=== PATIENT | male | born 1955 | race Hispanic/Latino ===

== ENCOUNTER 2017-03-28 02:56 | Emergency (ER) | payer MEDICAID, OTHER ==
[2017-03-28] MEDS ORDERED: ONDANSETRON HCL 4 MG/2 ML VIAL ONE ×2 (03:17→05:40)
[2017-03-28] MEDS ORDERED: KETOROLAC TROMETHAMINE 30MG/ML ONE (03:18)
[2017-03-28 03:26] LABS: BASOPHILS % (AUTO) 1.1 % (0.0-5.0); HEMATOCRIT 39.3 % (42-54); LYMPHOCYTES % (AUTO) 30.8 % (21.0-51.0); MEAN CORPUSCULAR HGB CONC 33.8 g/dL (32.0-36.0); MONOCYTES % (AUTO) 8.4 % (3.0-13.0); NEUTROPHILS % (AUTO) 58.7 % (40.0-77.0); PLATELET COUNT (AUTO) 338 K/uL (130-400); RED BLOOD CELL COUNT(AUTO) 4.42 MIL/uL (4.50-6.20); WHITE BLOOD COUNT (AUTO) 14.7 K/uL (4.8-10.8)
[2017-03-28 03:27] LABS: BILIRUBIN,URINE Negative (NEGATIVE); COLOR,URINE Orange (YELLOW); GLUCOSE, URINE (UA) Negative (NEGATIVE); KETONES,URINE Negative (NEGATIVE); LEUKOCYTE ESTERASE ,URINE Trace (NEGATIVE); NITRATE,URINE Negative (NEGATIVE); OCCULT BLOOD,URINE Large (NEGATIVE); PROTEIN,URINE 300 (NEGATIVE)
[2017-03-28 03:29] LABS: APPEARANCE,URINE CLOUDY (CLEAR)
[2017-03-28 03:35] LABS: CREATININE 0.9 mg/dL (0.5-1.5); POTASSIUM 3.1 mmol/L (3.5-5.1)
[2017-03-28 03:39] LABS: ALBUMIN 3.8 g/dL (3.5-5.0); BILIRUBIN,TOTAL 0.3 mg/dL (0.2-1.0); TOTAL PROTEIN, SERUM 7.4 g/dL (6.0-8.3)
[2017-03-28 03:43] LABS: RBC,URINE 51-100 /HPF (0-1)
[2017-03-28 03:44] LABS: BACTERIA,URINE Rare /HPF (None Seen); MUCUS,URINE Rare LPF (None Seen); SQUAMOUS EPITHELIAL CELL,UR Rare /LPF (0-2); YEAST,URINE BUDDING Rare /HPF (None Seen)
[2017-03-28] MEDS ORDERED: MORPHINE SULFATE 4 MG/1ML SYG ONE (04:41)
[2017-03-28] MEDS ORDERED: HYDROMORPHONE HCL 2 MG/ML VIAL ONE (05:41)
[2017-03-28] MEDS ORDERED: LIDOCAINE HCL 2% 20ML ONE (06:31)
[2017-03-28] MEDS ORDERED: SODIUM CHLORIDE 0.9% 250 ML IV ONE (06:33)
== END 2017-03-28 07:52 | disposition home or self-care (01) ==
LOC: EDH 02:56
DX: N20.1 Calculus of ureter (principal); N23 Unspecified renal colic; I10 Essential (primary) hypertension; Z87.442 Personal history of urinary calculi
CPT/HCPCS: 36415; 74176; 80053; 81001; 85025; 96374; 96375; 99285; J1170; J1885; J2270; J2405 ×2; J3490; J7030

== ENCOUNTER 2017-03-29 13:16 | Inpatient (IN) | payer OTHER ==
[~2017-03-29] VITALS: Ht 172.7 cm; Wt 97.3 kg
[2017-03-29] MEDS ORDERED: MORPHINE SULFATE 4 MG/1ML SYG ONE (13:45)
[2017-03-29] MEDS ORDERED: ONDANSETRON HCL 4 MG/2 ML VIAL ONE (13:45)
[2017-03-29 13:58] LABS: BASOPHILS % (AUTO) 0.4 % (0.0-5.0); EOSINOPHILS % (AUTO) 0.2 % (0.0-8.0); LYMPHOCYTES % (AUTO) 11.4 % (21.0-51.0); MEAN CORPUSCULAR HEMOGLOBIN 30.5 pg (27.0-33.0); MEAN CORPUSCULAR HGB CONC 34.4 g/dL (32.0-36.0); MEAN CORPUSCULAR VOLUME 88.7 fL (79-99); MONOCYTES % (AUTO) 8.1 % (3.0-13.0); NEUTROPHILS % (AUTO) 79.9 % (40.0-77.0); PLATELET COUNT (AUTO) 271 K/uL (130-400); RED BLOOD CELL COUNT(AUTO) 4.05 MIL/uL (4.50-6.20); RED CELL DISTRIBUTION WIDTH 13.8 % (11.0-15.5); WHITE BLOOD COUNT (AUTO) 16.4 K/uL (4.8-10.8)
[2017-03-29] MEDS ORDERED: ORPHENADRINE CITRATE 30 MG/ML ML ONE (14:06)
[2017-03-29] MEDS ORDERED: HYDROMORPHONE HCL 2 MG/ML VIAL ONE (14:07)
[2017-03-29 14:22] LABS: CREATININE 1.1 mg/dL (0.5-1.5); POTASSIUM 3.5 mmol/L (3.5-5.1)
[2017-03-29] MEDS ORDERED: HYDROMORPHONE HCL 0.5 MG/0.5 ML ML ONE ×2 (15:07→15:14)
[2017-03-29] MEDS: SODIUM CHLORIDE 0.9% 1000ML 1,000 ML IV SCH ×2 (15:21→20:56)
[2017-03-29] MEDS ORDERED: HYDRALAZINE HCL 20 MG/ML VIAL IV PRN (15:30)
[2017-03-29] MEDS ORDERED: CEFTRIAXONE 1GM/D5W 50ML 50 ML IV SCH (15:30)
[2017-03-29] MEDS ORDERED: GUAIFENESIN-DM 200/20 MG 10 ML PO PRN (15:30)
[2017-03-29] MEDS ORDERED: ONDANSETRON HCL 4 MG/2 ML VIAL IV PRN (15:30)
[2017-03-29] MEDS ORDERED: LACTULOSE 20 GM/30 ML UDCUP PO PRN (15:30)
[2017-03-29] MEDS ORDERED: ZOLPIDEM TARTRATE 5 MG TAB PO PRN (15:30)
[2017-03-29] MEDS ORDERED: DiphenhydrAMINE HCL 50 MG/ML VIAL IV PRN (15:30)
[2017-03-29] MEDS ORDERED: TAMSULOSIN HCL 0.4 MG CAP.ER.24H ONE (15:42)
[2017-03-29] MEDS ORDERED: SODIUM CHLORIDE 0.9% 1000ML 1,000 ML IV ONE (15:42)
[2017-03-29] MEDS: CEFTRIAXONE SODIUM 1 GM IVP SCH (16:15)
[2017-03-29 16:49] VITALS: BP 153/99
[2017-03-29] MEDS: MORPHINE SULFATE 4 MG/1ML SYG IV PRN ×2 (18:05→22:13)
[2017-03-29 19:15] VITALS: BP 143/114
[2017-03-29] MEDS: FAMOTIDINE 20MG TAB 20 MG TAB PO SCH (20:54)
[2017-03-29] MEDS: ACETAMINOPHEN-CODEINE 300/30MG TAB PO PRN (20:59)
[2017-03-30] VITALS (7 sets, daily range): BP systolic 108–146; BP diastolic 62–90
[2017-03-30] MEDS: MORPHINE SULFATE 4 MG/1ML SYG IV PRN ×3 (02:49→20:21)
[2017-03-30] MEDS ORDERED: HYDROMORPHONE HCL 2 MG/ML VIAL IVP ONE (05:45)
[2017-03-30] MEDS ORDERED: HYDROMORPHONE 1 MG/1 ML AMP ONE (05:50)
[2017-03-30] MEDS: SODIUM CHLORIDE 0.9% 1000ML 1,000 ML IV SCH ×2 (05:58→16:59)
[2017-03-30] MEDS: FAMOTIDINE 20MG TAB 20 MG TAB PO SCH ×2 (09:30→20:21)
[2017-03-30] MEDS: ENOXAPARIN SODIUM 40 MG/0.4 ML SYRINGE SQ SCH (09:34)
[2017-03-30] MEDS: TAMSULOSIN HCL 0.4 MG CAP.ER.24H PO SCH (09:34)
[2017-03-30] MEDS: ACETAMINOPHEN-CODEINE 300/30MG TAB PO PRN (14:53)
[2017-03-30] MEDS ORDERED: NAPR-1192 PO (15:26)
[2017-03-30] MEDS ORDERED: DEXT1DRO OP (15:26)
[2017-03-30] MEDS ORDERED: TAMS0.4C32 PO (15:26)
[2017-03-30] MEDS ORDERED: ESOM20CA39 PO (15:26)
[2017-03-30] MEDS ORDERED: SILD100T71 PO (15:26)
[2017-03-30] MEDS ORDERED: SENN-175 PO (15:26)
[2017-03-30] MEDS ORDERED: BUSP10TA3 PO (15:26)
[2017-03-30] MEDS ORDERED: LORA10TA7 PO (15:26)
[2017-03-30] MEDS ORDERED: GEMF600T3 PO (15:26)
[2017-03-30] MEDS ORDERED: FLUT16H NS (15:26)
[2017-03-30] MEDS ORDERED: GABA-533 PO (15:26)
[2017-03-30] MEDS ORDERED: CYCL10TA7 PO (15:26)
[2017-03-30] MEDS ORDERED: CARB15DR OU (15:26)
[2017-03-30] MEDS ORDERED: METF-526 PO (15:26)
[2017-03-30] MEDS ORDERED: HYDR-4060 PO (15:26)
[2017-03-30] MEDS ORDERED: FINA5TAB41 PO (15:26)
[2017-03-30] MEDS ORDERED: MIRT15TA6 PO (15:26)
[2017-03-30] MEDS ORDERED: BISA5TAB12 PO (15:26)
[2017-03-30] MEDS ORDERED: TRAZ150T79 PO (15:26)
[2017-03-30] MEDS: CEFTRIAXONE SODIUM 1 GM IVP SCH (17:02)
[2017-03-30] MEDS ORDERED: DEXTROSE 50%-WATER 50 ML DISP.SYRIN IV PRN (18:15)
[2017-03-30] MEDS ORDERED: GLUCAGON 1MG KIT 1 MG ML IM PRN (18:15)
[2017-03-30] MEDS ORDERED: PHARMACY COMMUNICATION MISC SCH (18:30)
[2017-03-30] MEDS ORDERED: PEG 3350/NA SULF,BICARB,CL/KCL 4000 ML SOLN PO ONE (19:00)
[2017-03-30] MEDS ORDERED: ONDANSETRON HCL 4 MG/2 ML VIAL IVP PRN (19:45)
[2017-03-30] MEDS ORDERED: NALOXONE HCL 0.4 MG/1 ML ML IVP PRN (19:45)
[2017-03-30] MEDS ORDERED: MORPHINE-NS 50 MG/50 ML 50 ML IV PRN (19:45)
[2017-03-30] MEDS: INSULIN HUMULIN R 100 UNIT/ML 3ML SQ SCH ×2 (20:23)
[2017-03-30 20:41] LABS: APPEARANCE,URINE Clear (CLEAR); BILIRUBIN,URINE Negative (NEGATIVE); COLOR,URINE Yellow (YELLOW); GLUCOSE, URINE (UA) Negative (NEGATIVE); KETONES,URINE Negative (NEGATIVE); LEUKOCYTE ESTERASE ,URINE Negative (NEGATIVE); NITRATE,URINE Negative (NEGATIVE); OCCULT BLOOD,URINE Small (NEGATIVE); PROTEIN,URINE Negative (NEGATIVE); UROBILINOGEN,URINE 0.2 mg/dL (0.2-1.0)
[2017-03-30 20:59] LABS: BACTERIA,URINE Rare /HPF (None Seen); RBC,URINE 0-1 /HPF (0-1); SQUAMOUS EPITHELIAL CELL,UR Rare /LPF (0-2)
[2017-03-31 04:00] VITALS: BP 139/79
[2017-03-31 04:37] LABS: HEMATOCRIT 30.5 % (42-54); MEAN CORPUSCULAR HEMOGLOBIN 30.5 pg (27.0-33.0); MEAN CORPUSCULAR HGB CONC 34.2 g/dL (32.0-36.0); MEAN CORPUSCULAR VOLUME 88.9 fL (79-99); PLATELET COUNT (AUTO) 240 K/uL (130-400); RED BLOOD CELL COUNT(AUTO) 3.42 MIL/uL (4.50-6.20); RED CELL DISTRIBUTION WIDTH 14.1 % (11.0-15.5); WHITE BLOOD COUNT (AUTO) 10.2 K/uL (4.8-10.8)
[2017-03-31 04:50] LABS: CREATININE 0.7 mg/dL (0.5-1.5); POTASSIUM 3.2 mmol/L (3.5-5.1)
[2017-03-31] MEDS: SODIUM CHLORIDE 0.9% 1000ML 1,000 ML IV SCH ×2 (05:02→15:57)
[2017-03-31] MEDS: INSULIN HUMULIN R 100 UNIT/ML 3ML SQ SCH ×8 (06:11→20:48)
[2017-03-31] MEDS ORDERED: POTASSIUM CHLORIDE 20MEQ/100ML 100 ML IV PRN (07:45)
[2017-03-31] MEDS ORDERED: POTASSIUM CHLORIDE 10% ELIXIR 20 MEQ/15 ML UDCUP PO PRN (07:45)
[2017-03-31] MEDS ORDERED: POTASSIUM CHLORIDE 20 MEQ ERTAB PO PRN (07:45)
[2017-03-31] MEDS ORDERED: LIDOCAINE HCL-MPF 1% 2ML VIAL IVP PRN (07:45)
[2017-03-31 09:32] VITALS: BP 153/87
[2017-03-31] MEDS ORDERED: IOPAMIDOL-370 100 ML VIAL IV ONE (10:19)
[2017-03-31 12:00] VITALS: BP 151/93
[2017-03-31] MEDS: FAMOTIDINE 20MG TAB 20 MG TAB PO SCH ×2 (14:07→20:46)
[2017-03-31] MEDS: TAMSULOSIN HCL 0.4 MG CAP.ER.24H PO SCH (14:08)
[2017-03-31] MEDS: ENOXAPARIN SODIUM 40 MG/0.4 ML SYRINGE SQ SCH (14:08)
[2017-03-31] MEDS: CEFTRIAXONE SODIUM 1 GM IVP SCH (15:57)
[2017-03-31] MEDS: HYDROCODONE/ACETAMINOPHEN 5/325 MG TAB PO PRN ×2 (16:05→21:44)
[2017-03-31 18:06] LABS: INR 0.94 (0.85-1.15); PARTIAL THROMBOPLASTIN TIME 29.5 SEC (26.3-35.5); PROTHROMBIN TIME 9.9 SEC (9.6-11.6)
[2017-03-31 19:12] VITALS: BP 143/84
[2017-03-31 20:00] VITALS: BP 149/94
[2017-03-31] MEDS ORDERED: HYDRALAZINE HCL 20 MG/ML VIAL IV PRN (23:30)
[2017-03-31 23:49] VITALS: BP 159/95
[2017-04-01] MEDS: SODIUM CHLORIDE 0.9% 1000ML 1,000 ML IV SCH ×3 (01:06→21:25)
[2017-04-01 04:00] VITALS: BP 168/95
[2017-04-01] MEDS: MORPHINE SULFATE 4 MG/1ML SYG IV PRN ×2 (04:24→10:04)
[2017-04-01] MEDS ORDERED: HYDRALAZINE HCL 20 MG/ML VIAL IV PRN (04:30)
[2017-04-01] MEDS: INSULIN HUMULIN R 100 UNIT/ML 3ML SQ SCH ×4 (06:10→20:40)
[2017-04-01 08:00] VITALS: BP 165/100
[2017-04-01] MEDS: ENOXAPARIN SODIUM 40 MG/0.4 ML SYRINGE SQ SCH (09:00)
[2017-04-01] MEDS: FAMOTIDINE 20MG TAB 20 MG TAB PO SCH ×2 (09:00→21:23)
[2017-04-01] MEDS: HYDROCODONE/ACETAMINOPHEN 5/325 MG TAB PO PRN ×3 (09:02→21:24)
[2017-04-01 11:00] VITALS: BP 146/87
[2017-04-01 16:00] VITALS: BP 196/108
[2017-04-01] MEDS: ACETAMINOPHEN 325 MG TAB PO PRN (17:10)
[2017-04-01] MEDS: CEFTRIAXONE SODIUM 1 GM IVP SCH (17:10)
[2017-04-01] MEDS: TAMSULOSIN HCL 0.4 MG CAP.ER.24H PO SCH (17:11)
[2017-04-01] MEDS ORDERED: SILDENAFIL CITRATE 20 MG TABLET PO PRN (19:30)
[2017-04-01] MEDS ORDERED: HYDROCODONE/ACETAMINOPHEN 5/325 MG TAB PO PRN (19:30)
[2017-04-01] MEDS ORDERED: CYCLOBENZAPRINE HCL 10 MG TABLET PO PRN (19:30)
[2017-04-01] MEDS ORDERED: ARTIFICAL TEARS SOL 15 ML OU PRN (19:30)
[2017-04-01] MEDS ORDERED: BISACODYL 5 MG TABLET.DR PO PRN (19:30)
[2017-04-01] MEDS ORDERED: DEXTRAN OP PRN (19:30)
[2017-04-01] MEDS ORDERED: HYPROMELLOSE OP PRN (19:30)
[2017-04-01] MEDS ORDERED: SENNOSIDES 8.6 MG TABLET PO PRN (19:30)
[2017-04-01] MEDS ORDERED: NAPROXEN 250 MG TAB PO PRN (19:30)
[2017-04-01] MEDS ORDERED: BUSPIRONE HCL 5 MG TABLET PO PRN (19:30)
[2017-04-01] MEDS ORDERED: LORATADINE 10 MG TABLET PO PRN (19:30)
[2017-04-01 20:00] VITALS: BP 154/87
[2017-04-01] MEDS: MIRTAZAPINE 15 MG TABLET PO SCH (21:00)
[2017-04-01] MEDS: TRAZODONE HCL 100 MG TABLET PO SCH (21:00)
[2017-04-01] MEDS: GABAPENTIN 100 MG CAPSULE PO SCH (21:22)
[2017-04-01 23:59] VITALS: BP 145/81
[2017-04-02 04:00] VITALS: BP 157/75
[2017-04-02] MEDS: HYDROCODONE/ACETAMINOPHEN 5/325 MG TAB PO PRN ×4 (04:55→20:58)
[2017-04-02] MEDS: INSULIN HUMULIN R 100 UNIT/ML 3ML SQ SCH ×4 (06:58→20:59)
[2017-04-02 08:00] VITALS: BP 152/100
[2017-04-02] MEDS: METFORMIN HCL 500 MG TAB.SR.24H PO SCH (08:00)
[2017-04-02] MEDS: PANTOPRAZOLE SODIUM 40 MG TABLET.DR PO SCH (08:00)
[2017-04-02] MEDS: ACETAMINOPHEN 325 MG TAB PO PRN ×2 (08:53→14:57)
[2017-04-02] MEDS: ENOXAPARIN SODIUM 40 MG/0.4 ML SYRINGE SQ SCH (09:00)
[2017-04-02] MEDS: FAMOTIDINE 20MG TAB 20 MG TAB PO SCH ×2 (09:00→20:59)
[2017-04-02] MEDS: LISINOPRIL 10 MG TABLET PO SCH ×2 (09:00→20:57)
[2017-04-02] MEDS: GEMFIBROZIL 600 MG TABLET PO SCH (09:00)
[2017-04-02] MEDS: FLUTICASONE PROPIONATE 50MCG/SPRAY 16 GM BOTTLE NS SCH (09:00)
[2017-04-02] MEDS: TAMSULOSIN HCL 0.4 MG CAP.ER.24H PO SCH (09:00)
[2017-04-02 11:00] VITALS: BP 175/98
[2017-04-02] MEDS: MORPHINE SULFATE 4 MG/1ML SYG IV PRN (12:40)
[2017-04-02] MEDS ORDERED: ISOVUE-300 100 ML VIAL IV ONE (13:50)
[2017-04-02] MEDS ORDERED: LIDOCAINE HCL 1% MDV 50ML VIAL ONE (13:50)
[2017-04-02] MEDS: GABAPENTIN 100 MG CAPSULE PO SCH ×3 (14:00→20:59)
[2017-04-02 16:00] VITALS: BP 142/84
[2017-04-02] MEDS: CEFTRIAXONE SODIUM 1 GM IVP SCH (16:11)
[2017-04-02] MEDS ORDERED: PEG 3350/NA SULF,BICARB,CL/KCL 4000 ML SOLN PO SCH (16:45)
[2017-04-02 20:00] VITALS: BP 159/99
[2017-04-02] MEDS: TRAZODONE HCL 100 MG TABLET PO SCH (20:59)
[2017-04-02] MEDS: MIRTAZAPINE 15 MG TABLET PO SCH (20:59)
[2017-04-02] MEDS: SODIUM CHLORIDE 0.9% 1000ML 1,000 ML IV SCH (21:00)
[2017-04-02] MEDS: FINASTERIDE 5 MG TABLET PO SCH (21:01)
[2017-04-02 23:50] VITALS: BP 158/95
[2017-04-03 04:00] VITALS: BP 139/83
[2017-04-03] MEDS: SODIUM CHLORIDE 0.9% 1000ML 1,000 ML IV SCH (05:21)
[2017-04-03] MEDS: INSULIN HUMULIN R 100 UNIT/ML 3ML SQ SCH ×2 (06:28→11:30)
[2017-04-03 07:00] VITALS: BP 158/101
[2017-04-03] MEDS: METFORMIN HCL 500 MG TAB.SR.24H PO SCH (08:00)
[2017-04-03] MEDS: HYDROCODONE/ACETAMINOPHEN 5/325 MG TAB PO PRN (08:05)
[2017-04-03] MEDS ORDERED: IOPAMIDOL-370 75 ML VIAL IV ONE (08:11)
[2017-04-03] MEDS: ENOXAPARIN SODIUM 40 MG/0.4 ML SYRINGE SQ SCH (09:00)
[2017-04-03] MEDS: FLUTICASONE PROPIONATE 50MCG/SPRAY 16 GM BOTTLE NS SCH (09:41)
[2017-04-03] MEDS: LISINOPRIL 10 MG TABLET PO SCH (09:42)
[2017-04-03] MEDS: GEMFIBROZIL 600 MG TABLET PO SCH (09:42)
[2017-04-03] MEDS: FAMOTIDINE 20MG TAB 20 MG TAB PO SCH (09:43)
[2017-04-03] MEDS: TAMSULOSIN HCL 0.4 MG CAP.ER.24H PO SCH (09:43)
[2017-04-03] MEDS: FINASTERIDE 5 MG TABLET PO SCH (09:43)
[2017-04-03] MEDS: PANTOPRAZOLE SODIUM 40 MG TABLET.DR PO SCH (09:43)
[2017-04-03] MEDS: GABAPENTIN 100 MG CAPSULE PO SCH (09:44)
[2017-04-03 12:00] VITALS: BP 142/86
== END 2017-04-03 12:45 | disposition home or self-care (01) | DRG 694 ==
LOC: EDH 13:16 → 3DH 15:21
PROVIDERS: ADMIT Family Medicine; ATTEND Family Medicine
DX: N13.2 Hydronephrosis with renal and ureteral calculous obstruction (principal); E11.9 Type 2 diabetes mellitus without complications; N39.0 Urinary tract infection, site not specified; I10 Essential (primary) hypertension; N40.0 Benign prostatic hyperplasia without lower urinary tract symptoms; F43.10 Post-traumatic stress disorder, unspecified; F32.9 Major depressive disorder, single episode, unspecified; Z87.442 Personal history of urinary calculi
CPT/HCPCS: 36415; 74176; 74400; 76775; 80048; 81001; 82948; 84153; 85025; 85027; 85610; 85730; 87088; A4218; C1894; J0360; J0696; J1170; J1650; J1815; J2270; J2405; J3480; J3490; J7030; Q9967

== ENCOUNTER → 2020-07-03 | Outpatient (CLI) | payer OTHER ==
[~2020-07-03] MED LIST: BISA5TAB12 PO; BUSP10TA3 PO; CARB15DR OU; CYCL10TA7 PO; DEXT1DRO OP; ESOM20CA39 PO; FINA5TAB41 PO; FLUT16H NS; GABA-533 PO; GEMF600T89 PO; HYDR-4060 PO; LORA10TA7 PO; METF-526 PO; MIRT15TA6 PO; NAPR-1192 PO; SENN8.6T32 PO; SILD100T71 PO; TAMS0.4C32 PO; TRAZ150T79 PO
== END | disposition home or self-care (01) ==
LOC: RAH 09:35
PROVIDERS: ATTEND Internal Medicine Gastroenterology
DX: K57.30 Diverticulosis of large intestine without perforation or abscess without bleeding (principal); N28.1 Cyst of kidney, acquired; R10.12 Left upper quadrant pain
CPT/HCPCS: 74178

== ENCOUNTER 2023-03-26 10:55 | Emergency (ER) | payer OTHER ==
[~2023-03-26] VITALS: Ht 172.7 cm; Wt 93.4 kg
[~2023-03-26 10:55] MED LIST changes: +BISA-151 PO; -BISA5TAB12 PO; +CYCL-309 PO; -CYCL10TA7 PO; -GABA-533 PO; +GABA-534 PO; +MIRT-22 PO; -MIRT15TA6 PO
[2023-03-26 11:44] LABS: RAPID GROUP A STREP negative (NEGATIVE)
[2023-03-26 11:47] LABS: SARS-CoV-2, RNA, NAAT NEGATIVE SARS CoV-2 (NEGATIVE)
[2023-03-26 11:53] LABS: INFLUENZA TYPE A Negative For Type A (NEGATIVE); INFLUENZA TYPE B Negative For Type B (NEGATIVE)
[2023-03-26 11:54] LABS: BASOPHILS # (AUTO) 0.05 K/uL (0.00-0.20); BASOPHILS % (AUTO) 0.4 % (0.0-5.0); EOSINOPHILS # (AUTO) 0.16 K/uL (0.00-0.70); EOSINOPHILS % (AUTO) 1.2 % (0.0-8.0); HEMATOCRIT 41.3 % (42-54); IMMATURE GRANULOCYTE ABSOLUTE 0.13 K/uL (0-1); LYMPHOCYTES # (AUTO) 3.6 K/uL (1.0-4.8); LYMPHOCYTES % (AUTO) 27.2 % (21.0-51.0); MEAN CORPUSCULAR HEMOGLOBIN 29.7 pg (27.0-33.0); MEAN CORPUSCULAR HGB CONC 32.9 g/dL (32.0-36.0); MEAN CORPUSCULAR VOLUME 90.2 fL (79-99); MONOCYTES # (AUTO) 1.2 K/uL (0.1-1.0); MONOCYTES % (AUTO) 8.9 % (3.0-13.0); NEUTROPHILS # (AUTO) 8.2 K/uL (1.8-7.7); NEUTROPHILS % (AUTO) 61.3 % (40.0-77.0); PLATELET COUNT (AUTO) 334 K/uL (130-400); RED BLOOD CELL COUNT(AUTO) 4.58 MIL/uL (4.50-6.20); RED CELL DISTRIBUTION WIDTH 13.9 % (11.0-15.5); WHITE BLOOD COUNT (AUTO) 13.4 K/uL (4.8-10.8)
[2023-03-26 12:03] LABS: CREATININE 0.8 mg/dL (0.5-1.5); POTASSIUM 3.6 mmol/L (3.5-5.1)
[2023-03-26 12:06] LABS: APPEARANCE,URINE CLEAR (CLEAR); BILIRUBIN,URINE NEGATIVE (NEGATIVE); COLOR,URINE LIGHT-YELLOW (YELLOW); GLUCOSE, URINE (UA) >=1000 mg/dL (NEGATIVE); KETONES,URINE NEGATIVE (NEGATIVE); LEUKOCYTE ESTERASE ,URINE NEGATIVE Leu/uL (NEGATIVE); NITRATE,URINE NEGATIVE (NEGATIVE); OCCULT BLOOD,URINE NEGATIVE (NEGATIVE); PH,URINE 5.5 (5.0-8.0); PROTEIN,URINE NEGATIVE (NEGATIVE); UROBILINOGEN,URINE 0.2 mg/dL (0.2-1.0)
[2023-03-26 12:07] LABS: ADD UA MICROSCOPIC YES
[2023-03-26 12:07] LABS: ALBUMIN 3.5 g/dL (3.5-5.0); BILIRUBIN,TOTAL 0.3 mg/dL (0.2-1.0); TOTAL PROTEIN, SERUM 7.8 g/dL (6.0-8.3)
[2023-03-26 12:24] LABS: RBC,URINE 0-1 /HPF (0-1); WBC,URINE 0-1 /HPF (0-1)
[2023-03-26 14:20] VITALS: BP 146/80; PULSE 88; RESP 18; O2SAT 97
== END 2023-03-26 14:57 | disposition left against medical advice (07) ==
LOC: EDH 10:55
DX: R10.9 Unspecified abdominal pain (principal); R05.9 Cough, unspecified; J02.9 Acute pharyngitis, unspecified; E11.9 Type 2 diabetes mellitus without complications; I10 Essential (primary) hypertension; Z79.84 Long term (current) use of oral hypoglycemic drugs; Z79.899 Other long term (current) drug therapy; Z20.822 Contact with and (suspected) exposure to COVID-19
CPT/HCPCS: 36415; 80053; 81001; 85025; 87635; 87804; 87880; 93005